=== PATIENT | male | born 1980 | race Caucasian/White ===

== ENCOUNTER 2018-11-19 03:58 | Emergency (ER) | payer MEDICAID ==
[~2018-11-19] VITALS: Ht 177.8 cm; Wt 65.0 kg
[~2018-11-19 03:58] MED LIST: OMEP20CA4 PO
[2018-11-19 04:00] VITALS: BP 137/102
[2018-11-19] MEDS ORDERED: PRED20TA PO (04:19)
[2018-11-19] MEDS ORDERED: AMOX500C2 PO (04:19)
[2018-11-19] MEDS ORDERED: acetaminophen 325mg tablet PO ONE (04:20)
[2018-11-19] MEDS ORDERED: dexamethasone 4mg tablet PO ONE (04:20)
[2018-11-19] MEDS ORDERED: amoxicillin 250mg capsule PO ONE (04:20)
== END 2018-11-19 04:31 | disposition home or self-care (01) ==
LOC: ER 03:58
DX: J02.9 Acute pharyngitis, unspecified (principal); R00.0 Tachycardia, unspecified; J45.909 Unspecified asthma, uncomplicated; F15.90 Other stimulant use, unspecified, uncomplicated; Z98.890 Other specified postprocedural states; Z88.1 Allergy status to other antibiotic agents; Z79.2 Long term (current) use of antibiotics; Z79.899 Other long term (current) drug therapy
CPT/HCPCS: 99284

== ENCOUNTER 2019-01-28 13:45 | Emergency (ER) | payer MEDICAID ==
[~2019-01-28] VITALS: Ht 175.3 cm; Wt 81.8 kg
[~2019-01-28 13:45] MED LIST changes: +LIDOcaine 1% W/epiNEPHrine 1:100,000 20ml vial ONE
[2019-01-28 13:53] VITALS: BP 141/94
[2019-01-28] MEDS ORDERED: bacitracin 15gm ointment TP ONE (18:05)
[2019-01-28] MEDS ORDERED: TETanus/Pertussis (Acell)/Diphther VAC/PF (Tdap-Adult) 0.5ml syringe IMVAC ONE (18:05)
[2019-01-28] MEDS ORDERED: CEPH250T PO (19:23)
== END 2019-01-28 19:30 | disposition home or self-care (01) ==
LOC: ER 13:46
DX: S81.812A Laceration without foreign body, left lower leg, initial encounter (principal); F15.90 Other stimulant use, unspecified, uncomplicated; J45.909 Unspecified asthma, uncomplicated; Z88.1 Allergy status to other antibiotic agents; Z88.8 Allergy status to other drugs, medicaments and biological substances; W26.0XXA Contact with knife, initial encounter; Y93.89 Activity, other specified; Y92.89 Other specified places as the place of occurrence of the external cause; Y99.9 Unspecified external cause status
CPT/HCPCS: 12002; 90471; 99283

== ENCOUNTER 2019-03-05 20:01 | Emergency (ER) | payer MEDICAID ==
[~2019-03-05] VITALS: Ht 177.8 cm; Wt 77.0 kg
[~2019-03-05 20:01] MED LIST changes: +CEPH250T PO; -LIDOcaine 1% W/epiNEPHrine 1:100,000 20ml vial ONE
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
--- NOTE | 2019-03-05 20:47 | NUR ---
pt states, hasnt smoked meth in 2 days.
[2019-03-05 21:25] LABS: BASOPHILS # (AUTO) 0.1 X10'3 (0-0.2); BASOPHILS % (AUTO) 0.4 % (0-1); EOSINOPHILS % (AUTO) 0.1 % (0-6); HEMATOCRIT 43.9 % (42.0-52.0); HEMOGLOBIN 14.8 g/dl (14.0-17.9); LYMPHOCYTES # (AUTO) 1.6 X10'3 (1.1-4.8); LYMPHOCYTES % (AUTO) 11.6 % (21-51); MEAN CORPUSCULAR HGB CONC 33.6 g/dL (33.0-36.5); MEAN CORPUSCULAR VOLUME 92.4 FL (78-98); MEAN PLATELET VOLUME 9.2 FL (7.4-10.4); MONOCYTES # (AUTO) 1.1 X10'3 (0-0.9); MONOCYTES % (AUTO) 7.5 % (2-12); NEUTROPHILS # (AUTO) 11.2 X10'3 (1.8-7.7); NEUTROPHILS % (AUTO) 80.4 % (42-75); PLATELET COUNT 239 X10'3 (140-440); RED BLOOD COUNT 4.76 X10'6 (4.70-6.10); RED CELL DISTRIBUTION WIDTH 13.2 % (11.5-14.5)
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
[2019-03-05 21:33] LABS: ALANINE AMINOTRANSFERASE 97 U/L (12-78); ALBUMIN 4.2 G/DL (3.4-5.0); ALBUMIN/GLOBULIN RATIO 1.3 (1.1-1.5); ALKALINE PHOSPHATASE 98 IU/L (46-116); ANION GAP 10 (8-16); ASPARTATE AMINO TRANSFERASE 196 U/L (10-37); BILIRUBIN,TOTAL 1.8 MG/DL (0.1-1.0); BLOOD UREA NITROGEN 19 MG/DL (7-18); BUN/CREATININE RATIO 16.7 (5.4-32.0); CALCIUM 8.9 MG/DL (8.5-10.1); CHLORIDE 106 MMOL/L (99-107); CREATININE 1.14 MG/DL (0.60-1.10); ETHANOL < 0.010 GM/DL (0.0-0.010); GLUCOSE 116 MG/DL (70-104); POTASSIUM 4.1 MMOL/L (3.5-5.1); SODIUM 145 MMOL/L (135-145); TOTAL PROTEIN 7.4 G/DL (6.4-8.2); eGFR 72 ML/MIN
[2019-03-05 21:54] LABS: URINE AMPHETAMINE SCREEN POSITIVE (Neg); URINE BARBITUATE SCREEN NEGATIVE (Neg); URINE BENZODIAZEPINES SCREEN NEGATIVE (Neg); URINE CANNABINOID SCREEN NEGATIVE (Neg); URINE COCAINE SCREEN NEGATIVE (Neg); URINE METHADONE SCREEN NEGATIVE (Neg); URINE OPIATE SCREEN NEGATIVE (Neg); URINE PHENCYCLIDINE SCREEN NEGATIVE (Neg)
[2019-03-05 23:49] LABS: CLARITY,URINE CLEAR (Clear); COLOR,URINE YELLOW (Yellow); GLUCOSE, URINE NEGATIVE (Neg); KETONES,URINE 15 mg/dl (Neg); LEUKOCYTE ESTERASE ,URINE NEGATIVE (Neg); NITRITES, URINE NEGATIVE (Neg); OCCULT BLOOD,URINE NEGATIVE (Neg); PROTEIN,URINE NEGATIVE (Neg)
[2019-03-05 23:50] LABS: UA COLLECTION TYPE VOIDED
--- NOTE | 2019-03-06 01:26 | NUR ---
Patient sleeping low fowlers position in bed. In view from nursing station.
--- NOTE | 2019-03-06 03:44 | NUR ---
Patient sleeping low fowlers in bed. In view from nursing station.
[2019-03-06 05:11] VITALS: BP 109/69
--- NOTE | 2019-03-06 06:30 | NUR ---
Resting with eyes closed. Respirations normal.
--- NOTE | 2019-03-06 13:25 | NUR ---
Patient sitting up in bed and eating lunch. No distress observed. Continue to monitor.
--- NOTE | 2019-03-06 14:48 | NUR ---
Patient walked up to nurses station and said "I am a self admit, am I allowed to leave?". RN advised patient that he is on a hold at the moment. RN advised patient that he will be evaluated soon and [facility] will decide, once he is evaluated if he can leave. Patient calm and verbalized understanding. Continue to monitor.
--- NOTE | 2019-03-06 15:50 | NUR ---
pt ok to go to [place], called ABIMAEL carroll 15 minutes
== END 2019-03-06 15:58 | disposition home or self-care (01) ==
LOC: ER 20:02
DX: R45.851 Suicidal ideations (principal); J45.909 Unspecified asthma, uncomplicated; F15.90 Other stimulant use, unspecified, uncomplicated; F10.99 Alcohol use, unspecified with unspecified alcohol-induced disorder; Z59.0 Homelessness; Z88.1 Allergy status to other antibiotic agents; Z88.8 Allergy status to other drugs, medicaments and biological substances; Z79.2 Long term (current) use of antibiotics; Z79.899 Other long term (current) drug therapy; Y90.9 Presence of alcohol in blood, level not specified
CPT/HCPCS: 36415; 80053; 80305; 80320; 81003; 84443; 85025; 99284

== ENCOUNTER 2019-03-22 23:51 | Emergency (ER) | payer MEDICAID ==
[~2019-03-22] VITALS: Ht 175.3 cm; Wt 77.0 kg
[2019-03-23] MEDS ORDERED: diphenhydrAMINE 50 mg/ml inj IM ONE (00:50)
[2019-03-23] MEDS ORDERED: triamcinolone acetonide 40mg/ml inj IM ONE (00:50)
[2019-03-23] MEDS ORDERED: DIPH25CA83 PO (00:52)
== END 2019-03-23 01:12 | disposition home or self-care (01) ==
LOC: ER 23:52
DX: L23.7 Allergic contact dermatitis due to plants, except food (principal); J45.909 Unspecified asthma, uncomplicated; F15.90 Other stimulant use, unspecified, uncomplicated; F19.90 Other psychoactive substance use, unspecified, uncomplicated; Z59.0 Homelessness; Z88.1 Allergy status to other antibiotic agents; Z88.8 Allergy status to other drugs, medicaments and biological substances; Z79.2 Long term (current) use of antibiotics; Z79.899 Other long term (current) drug therapy
CPT/HCPCS: 96372; 99283; J1200; J3301

== ENCOUNTER 2019-04-03 06:55 | Emergency (ER) | payer MEDICAID, OTHER ==
[~2019-04-03] VITALS: Ht 177.8 cm; Wt 75.0 kg
[~2019-04-03 06:55] MED LIST changes: +DIPH25CA83 PO
[2019-04-03 07:02] VITALS: BP 143/96
[2019-04-03] MEDS ORDERED: Permethrin Cream 60gm TP ONE (08:25)
[2019-04-03] MEDS ORDERED: TRIA15CR61 TOP (08:33)
[2019-04-03] MEDS ORDERED: PERM60CR4 TOP (08:33)
== END 2019-04-03 09:30 | disposition home or self-care (01) ==
LOC: ER 06:55
DX: L53.8 Other specified erythematous conditions (principal); B86 Scabies; J45.909 Unspecified asthma, uncomplicated; F15.90 Other stimulant use, unspecified, uncomplicated; Z59.0 Homelessness; Z88.1 Allergy status to other antibiotic agents; Z88.8 Allergy status to other drugs, medicaments and biological substances
CPT/HCPCS: 99283

== ENCOUNTER 2019-04-11 16:54 | Emergency (ER) | payer MEDICAID, OTHER ==
[~2019-04-11] VITALS: Ht 175.3 cm; Wt 69.9 kg
[~2019-04-11 16:54] MED LIST changes: +PERM60CR4 TOP; +TRIA15CR61 TOP
[2019-04-11 17:29] LABS: BASOPHILS # (AUTO) 0.1 X10'3 (0-0.2); BASOPHILS % (AUTO) 0.7 % (0-1); EOSINOPHILS % (AUTO) 0.2 % (0-6); HEMATOCRIT 44.9 % (42.0-52.0); LYMPHOCYTES # (AUTO) 1.1 X10'3 (1.1-4.8); LYMPHOCYTES % (AUTO) 8.2 % (21-51); MEAN CORPUSCULAR HEMOGLOBIN 31.3 PG (27.0-31.0); MEAN CORPUSCULAR HGB CONC 33.5 g/dL (33.0-36.5); MEAN CORPUSCULAR VOLUME 93.5 FL (78-98); MEAN PLATELET VOLUME 7.5 FL (7.4-10.4); MONOCYTES % (AUTO) 7.3 % (2-12); NEUTROPHILS # (AUTO) 11.5 X10'3 (1.8-7.7); NEUTROPHILS % (AUTO) 83.6 % (42-75); PLATELET COUNT 353 X10'3 (140-440); RED CELL DISTRIBUTION WIDTH 14.1 % (11.5-14.5); WHITE BLOOD COUNT 13.7 X10'3 (4.5-11.0)
[2019-04-11 17:46] LABS: ALANINE AMINOTRANSFERASE 96 U/L (12-78); ALBUMIN 4.4 G/DL (3.4-5.0); ALBUMIN/GLOBULIN RATIO 1.2 (1.1-1.5); ALKALINE PHOSPHATASE 87 IU/L (46-116); ANION GAP 8 (8-16); ASPARTATE AMINO TRANSFERASE 69 U/L (10-37); BILIRUBIN,TOTAL 0.8 MG/DL (0.1-1.0); BLOOD UREA NITROGEN 22 MG/DL (7-18); BUN/CREATININE RATIO 26.5 (5.4-32.0); CALCIUM 10.1 MG/DL (8.5-10.1); CHLORIDE 104 MMOL/L (99-107); CREATININE 0.83 MG/DL (0.60-1.10); GLUCOSE 115 MG/DL (70-104); POTASSIUM 4.2 MMOL/L (3.5-5.1); SODIUM 142 MMOL/L (135-145); TOTAL CARBON DIOXIDE 30.3 MMOL/L (24-32); TOTAL PROTEIN 8.1 G/DL (6.4-8.2); eGFR > 90 ML/MIN
[2019-04-11] MEDS ORDERED: LORazepam 1 MG tablet PO ONE (20:45)
[2019-04-11] MEDS ORDERED: normal saline 1000ml 1,000 ML IV ONE (21:10)
[2019-04-11 21:47] VITALS: BP 152/91
[2019-04-12] MEDS ORDERED: PERM60CR19 TOP (23:41)
[2019-04-12] MEDS ORDERED: HYDR-3686 PO (23:41)
== END 2019-04-11 22:22 | disposition home or self-care (01) ==
LOC: ER 16:55
DX: R07.89 Other chest pain (principal); F41.9 Anxiety disorder, unspecified; J45.909 Unspecified asthma, uncomplicated; F15.90 Other stimulant use, unspecified, uncomplicated; Z59.0 Homelessness; Z88.1 Allergy status to other antibiotic agents; Z88.8 Allergy status to other drugs, medicaments and biological substances
CPT/HCPCS: 36415; 71045; 80053; 84484; 85025; 93005; 99285; J7030

== ENCOUNTER 2019-04-12 21:19 | Emergency (ER) | payer MEDICAID, OTHER ==
[~2019-04-12] VITALS: Ht 175.3 cm; Wt 75.0 kg
[2019-04-12 21:25] VITALS: BP 116/75
[2019-04-12] MEDS ORDERED: hydrOXYzine 25 MG tablet PO ONE (23:30)
[2019-04-12] MEDS ORDERED: PERM60CR19 TOP (23:41)
[2019-04-12] MEDS ORDERED: HYDR-3686 PO (23:41)
--- NOTE | 2019-04-12 23:51 | NUR ---
PT NOT IN ROOM, HE LEFT WITHOUT DC INSTRUCTIONS
== END 2019-04-12 23:54 | disposition home or self-care (01) ==
LOC: ER 21:19
DX: R07.89 Other chest pain (principal); R21 Rash and other nonspecific skin eruption; J45.909 Unspecified asthma, uncomplicated; F15.90 Other stimulant use, unspecified, uncomplicated; Z59.0 Homelessness; Z88.1 Allergy status to other antibiotic agents; Z88.8 Allergy status to other drugs, medicaments and biological substances
CPT/HCPCS: 99283

== ENCOUNTER 2019-04-14 00:06 | Emergency (ER) | payer MEDICAID, OTHER ==
[~2019-04-14] VITALS: Ht 167.6 cm; Wt 77.3 kg
[~2019-04-14 00:06] MED LIST changes: +HYDR-3686 PO; +PERM60CR19 TOP
[2019-04-14] MEDS ORDERED: HYDR-3686 PO (00:29)
[2019-04-14] MEDS ORDERED: normal saline 1000ML IV soln IVB ONE (00:35)
[2019-04-14] MEDS ORDERED: naproxen 500mg tablet PO ONE (00:35)
[2019-04-14 00:51] VITALS: BP 126/75
== END 2019-04-14 00:52 | disposition home or self-care (01) ==
LOC: ER 00:07
DX: R07.89 Other chest pain (principal); J45.909 Unspecified asthma, uncomplicated; F15.90 Other stimulant use, unspecified, uncomplicated; Z59.0 Homelessness; Z88.1 Allergy status to other antibiotic agents; Z88.8 Allergy status to other drugs, medicaments and biological substances
CPT/HCPCS: 93005; 99283; J7030

== ENCOUNTER 2019-04-18 18:47 | Emergency (ER) | payer MEDICAID, OTHER ==
[~2019-04-18] VITALS: Ht 177.8 cm; Wt 75.0 kg
[2019-04-18 18:59] VITALS: BP 142/89
[2019-04-18] MEDS ORDERED: TRIA15CR61 TOP (19:48)
[2019-04-18] MEDS ORDERED: PERM60CR19 TOP (19:48)
[2019-04-18] MEDS ORDERED: CETI10CA PO (19:50)
[2019-04-18] MEDS ORDERED: diphenhydrAMINE 25mg capsule PO ONE (20:35)
== END 2019-04-18 20:38 | disposition home or self-care (01) ==
LOC: ER 18:47
DX: B86 Scabies (principal); B88.8 Other specified infestations; J45.909 Unspecified asthma, uncomplicated; F15.90 Other stimulant use, unspecified, uncomplicated; Z59.0 Homelessness; Z88.1 Allergy status to other antibiotic agents; Z88.8 Allergy status to other drugs, medicaments and biological substances; Z79.2 Long term (current) use of antibiotics; Z79.899 Other long term (current) drug therapy; Z72.89 Other problems related to lifestyle
CPT/HCPCS: 99283; Q0163

== ENCOUNTER 2019-05-27 22:55 | Emergency (ER) | payer MEDICAID, OTHER ==
[~2019-05-27] VITALS: Ht 175.3 cm; Wt 70.5 kg
[~2019-05-27 22:55] MED LIST changes: +CETI10CA PO; -TRIA15CR61 TOP
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
[2019-05-27 23:40] LABS: BASOPHILS # (AUTO) 0.3 X10'3 (0-0.2); EOSINOPHILS % (AUTO) 0.4 % (0-6); HEMOGLOBIN 10.4 g/dl (14.0-17.9); LYMPHOCYTES # (AUTO) 0.8 X10'3 (1.1-4.8); LYMPHOCYTES % (AUTO) 6.2 % (21-51); MEAN CORPUSCULAR HEMOGLOBIN 29.9 PG (27.0-31.0); MEAN CORPUSCULAR HGB CONC 32.6 g/dL (33.0-36.5); MEAN CORPUSCULAR VOLUME 91.8 FL (78-98); MEAN PLATELET VOLUME 8.7 FL (7.4-10.4); MONOCYTES % (AUTO) 8.4 % (2-12); NEUTROPHILS # (AUTO) 10.3 X10'3 (1.8-7.7); PLATELET COUNT 408 X10'3 (140-440); RED BLOOD COUNT 3.48 X10'6 (4.70-6.10); RED CELL DISTRIBUTION WIDTH 15.2 % (11.5-14.5); WHITE BLOOD COUNT 12.5 X10'3 (4.5-11.0)
[2019-05-27 23:42] LABS: CLARITY,URINE CLEAR (Clear); COLOR,URINE YELLOW (Yellow); GLUCOSE, URINE NEGATIVE (Neg); KETONES,URINE 40 mg/dl (Neg); LEUKOCYTE ESTERASE ,URINE NEGATIVE (Neg); NITRITES, URINE NEGATIVE (Neg); OCCULT BLOOD,URINE NEGATIVE (Neg); PH,URINE 5.5 (4.8-8.0); PROTEIN,URINE NEGATIVE (Neg); UROBILINOGEN,URINE 0.2 E.U/dL (0.2-1.0)
[2019-05-27 23:46] LABS: UA COLLECTION TYPE VOIDED
[2019-05-27 23:57] LABS: URINE AMPHETAMINE SCREEN POSITIVE (Neg); URINE BARBITUATE SCREEN NEGATIVE (Neg); URINE BENZODIAZEPINES SCREEN NEGATIVE (Neg); URINE CANNABINOID SCREEN NEGATIVE (Neg); URINE COCAINE SCREEN NEGATIVE (Neg); URINE METHADONE SCREEN NEGATIVE (Neg); URINE OPIATE SCREEN POSITIVE (Neg); URINE PHENCYCLIDINE SCREEN NEGATIVE (Neg)
[2019-05-27 23:58] LABS: ALANINE AMINOTRANSFERASE 57 U/L (12-78); ALBUMIN 3.6 G/DL (3.4-5.0); ALBUMIN/GLOBULIN RATIO 0.9 (1.1-1.5); ALKALINE PHOSPHATASE 96 IU/L (46-116); ANION GAP 11 (8-16); ASPARTATE AMINO TRANSFERASE 61 U/L (10-37); BLOOD UREA NITROGEN 34 MG/DL (7-18); BUN/CREATININE RATIO 30.1 (5.4-32.0); CHLORIDE 102 MMOL/L (99-107); CREATININE 1.13 MG/DL (0.60-1.10); ETHANOL < 0.010 GM/DL (0.0-0.010); GLUCOSE 114 MG/DL (70-104); POTASSIUM 3.7 MMOL/L (3.5-5.1); SODIUM 138 MMOL/L (135-145); TOTAL CARBON DIOXIDE 25.5 MMOL/L (24-32); TOTAL PROTEIN 7.6 G/DL (6.4-8.2); eGFR 73 ML/MIN
[2019-05-28] LABS: ACETAMINOPHEN < 2.0 UG/ML (10-30)
[2019-05-28] MEDS: amox tr/potassium clavulanate 875/125mg TAB PO SCH ×2 (00:51→07:59)
--- NOTE | 2019-05-28 01:00 | NUR ---
Pt. lying in bed sleeping at this time, rr even and unlabored. Pt. has a large scab present on right lower calf, skin at area feels warm and is slightly reddened and edematous. Pt. reports that he got bit by a dog here one-month ago. Dr. Swenson assessed area and new order for Augmentin ABT, pt. compliant with taking medication. Area cleaned and picture obtained and placed in pt's chart. New order for wound care consult obtained.
--- NOTE | 2019-05-28 01:00 | NUR ---
Note undone in EDM - 05/28/19 at 0315 by JAVIER Pt. laying in bed sleeping at this time, rr even and unlabored. Pt. has a large scab present on left lower calf, skin at area feels warm and is slightly reddened. Pt. reports that he got bit by a dog here one-month ago. Dr. Swenson assessed area and new order for Augmentin ABT, pt. compliant with taking medication.
[2019-05-28] MEDS ORDERED: NO HOME MEDS (02:55)
--- NOTE | 2019-05-28 03:00 | NUR ---
Pt. continues to sleep at this time, laying on his back, rr even and unlabored.
--- NOTE | 2019-05-28 05:00 | NUR ---
Pt. continues to sleep, laying on his left side at this time, makes occasional body adjustments.
--- NOTE | 2019-05-28 05:20 | NUR ---
Awoke pt. to obtain V/S, pt. reports pain at left shoulder site, however he immediately returns back to sleep. No other s/s of pain exhibited and V/S WNL. Will endorse to AM shift and continue to monitor.
--- NOTE | 2019-05-28 06:04 | NUR ---
Pt. continues to sleep, appears to be resting comfortably, rr remain even and unlabored.
--- NOTE | 2019-05-28 06:33 | NUR ---
Received patient resting in bed peacefully on his left side. No distress observed.
--- NOTE | 2019-05-28 08:04 | NUR ---
Patient is up in bed eating breakfast. Denies SI/HI, A/VH. He states that he just gets "depressed sometimes". Took his oral medication for dog bite on his leg without incident. He is pleasant and cooperative with care. Right leg with wound on lateral side of calf. It is red and warm to the touch, no open spots or oozing noted. Patient states that he has had a tetanus shot in the last 5 years.
--- NOTE | 2019-05-28 08:13 | NUR ---
Compa from [facility] is at bedside evaluating patient. Pt is overheard stating that he has been under stress lately and has tried to kill himself a few times. Stress is that he is homeless.
--- NOTE | 2019-05-28 08:21 | NUR ---
Patient is seen ambulating to the bathroom. He gait is antalgic and he reports that his right leg is "sore".
--- NOTE | 2019-05-28 08:55 | NUR ---
Compa from [facility] states he will not be keeping patient on a hold.
[2019-05-28] MEDS ORDERED: AMOX-422 PO (09:18)
--- NOTE | 2019-05-28 09:20 | NUR ---
Patient is being assessed by Dr. Dutta regarding leg wound. Patient was given the number for [facility] and encouraged to follow up with the [facility].
--- NOTE | 2019-05-28 09:33 | NUR ---
Patient was discharged from the facility ambulating self. No distress observed. All personal items inventoried and in patient's possession at time of discharge. All discharge paperwork discussed with patient, questions were answered and patient verbalized understanding. Patient currently denies SI and states that he will follow up with [facility] for depression on Thursday per Compa from [facility] recommendation. Patient is a non-smoker. Information on Suicide prevention and resources given to patient. Resources on NA/AA and abstaining from illicit substances were given to patient as well. Currently denies HI, A/VH. Prescription for Augmentin given to patient with education and instructions. Cab called for patient.
[2019-05-28 09:34] VITALS: BP 123/83
== END 2019-05-28 09:38 | disposition home or self-care (01) ==
LOC: ER 22:56
DX: R45.851 Suicidal ideations (principal); L03.115 Cellulitis of right lower limb; F15.10 Other stimulant abuse, uncomplicated; J45.909 Unspecified asthma, uncomplicated; Z59.0 Homelessness; Z72.89 Other problems related to lifestyle; Z88.1 Allergy status to other antibiotic agents; Z91.030 Bee allergy status; Z79.899 Other long term (current) drug therapy
CPT/HCPCS: 80053; 80305; 80320; 80329; 81003; 85025; 99285

== ENCOUNTER 2019-08-06 12:06 | Inpatient (IN) | payer MEDICAID ==
[~2019-08-06] VITALS: Ht 177.8 cm; Wt 72.7 kg
[~2019-08-06 12:06] MED LIST changes: -CEPH250T PO; +CEPH500C5 PO; -CETI10CA PO; -DIPH25CA83 PO; +FLUO-167 PO; -HYDR-3686 PO; +HYDR-4383 PO; +MULT-1179 PO; +NICO-668 BC; +NO HOME MEDS; -OMEP20CA4 PO; -PERM60CR19 TOP; -PERM60CR4 TOP; +TRAZ-251 PO; +diatrozoate meglu/diatrozoate sod (37% iodine) 120ML oral solution ONE; +thiamine tablet PO
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
[2019-08-06] MEDS ORDERED: ondansetron/PF 4mg/2ml inj IV ONE (12:50)
[2019-08-06] MEDS ORDERED: morphine 4 MG/ML inj SYRINge IV ONE (12:50)
[2019-08-06] MEDS ORDERED: normal saline 1000ML IV soln IVB ONE (12:50)
[2019-08-06] MEDS ORDERED: iohexol 300mg/ml 100ml inj. ONE (12:55)
[2019-08-06] MEDS ORDERED: iohexol 300 MG/1 ML 50ml polymer ONE (13:00)
--- NOTE | 2019-08-06 13:11 | NUR ---
pt out to ct via wheelchair with entertainment production professional
[2019-08-06 13:24] LABS: BASOPHILS # (AUTO) 0.1 X10'3 (0-0.2); BASOPHILS % (AUTO) 0.7 % (0-1); EOSINOPHILS # (AUTO) 0.1 X10'3 (0-0.9); EOSINOPHILS % (AUTO) 0.7 % (0-6); HEMATOCRIT 36.8 % (42.0-52.0); HEMOGLOBIN 11.9 g/dl (14.0-17.9); LYMPHOCYTES # (AUTO) 0.8 X10'3 (1.1-4.8); LYMPHOCYTES % (AUTO) 6.8 % (21-51); MEAN CORPUSCULAR HEMOGLOBIN 27.4 PG (27.0-31.0); MEAN CORPUSCULAR HGB CONC 32.4 g/dL (33.0-36.5); MEAN CORPUSCULAR VOLUME 84.5 FL (78-98); MEAN PLATELET VOLUME 8.1 FL (7.4-10.4); MONOCYTES # (AUTO) 1.1 X10'3 (0-0.9); MONOCYTES % (AUTO) 9.3 % (2-12); NEUTROPHILS # (AUTO) 10.1 X10'3 (1.8-7.7); NEUTROPHILS % (AUTO) 82.5 % (42-75); PLATELET COUNT 304 X10'3 (140-440); RED BLOOD COUNT 4.36 X10'6 (4.70-6.10); RED CELL DISTRIBUTION WIDTH 16.2 % (11.5-14.5); WHITE BLOOD COUNT 12.2 X10'3 (4.5-11.0)
--- NOTE | 2019-08-06 13:30 | NUR ---
pt returns from ct. [employer] at the bedside
[2019-08-06 13:39] LABS: PARTIAL THROMBOPLASTIN TIME 26 SECONDS (22-32)
[2019-08-06 13:41] LABS: ALANINE AMINOTRANSFERASE 22 U/L (12-78); ALBUMIN 3.3 G/DL (3.4-5.0); ALBUMIN/GLOBULIN RATIO 0.8 (1.1-1.5); ALKALINE PHOSPHATASE 93 IU/L (46-116); ANION GAP 10 (8-16); ASPARTATE AMINO TRANSFERASE 27 U/L (10-37); BILIRUBIN,TOTAL 1.3 MG/DL (0.1-1.0); BLOOD UREA NITROGEN 11 MG/DL (7-18); BUN/CREATININE RATIO 10.8 (5.4-32.0); CALCIUM 9.3 MG/DL (8.5-10.1); CHLORIDE 100 MMOL/L (99-107); CREATININE 1.02 MG/DL (0.60-1.10); ETHANOL < 0.010 GM/DL (0.0-0.010); GLUCOSE 117 MG/DL (70-104); POTASSIUM 3.7 MMOL/L (3.5-5.1); SODIUM 138 MMOL/L (135-145); TOTAL CARBON DIOXIDE 28.2 MMOL/L (24-32); TOTAL PROTEIN 7.3 G/DL (6.4-8.2); eGFR 82 ML/MIN
[2019-08-06] MEDS ORDERED: vancomycin/NS 1 GM ADD-VANTAGE 250 ML IV ONE (14:15)
[2019-08-06] MEDS ORDERED: piperacillin/tazo 3.375gm/50ml 50 ML IV ONE (14:15)
[2019-08-06] MEDS ORDERED: ondansetron/PF 4mg/2ml inj IV PRN (15:30)
[2019-08-06] MEDS ORDERED: potassium CL 10mEq/100ml bag 100 ML IV PRN ×2 (15:30)
[2019-08-06] MEDS ORDERED: magnesium Cl slow-release 64mg tablet PO PRN (15:30)
[2019-08-06] MEDS ORDERED: potassium Cl 20 mEq SR tablet PO PRN ×2 (15:30)
[2019-08-06] MEDS ORDERED: acetaminophen 325mg tablet PO PRN (15:30)
[2019-08-06] MEDS ORDERED: magnesium 4gm in 100ml NS 100 ML IV PRN (15:30)
[2019-08-06] MEDS ORDERED: magnesium 2GM in 50ml NS 50 ML IV PRN (15:30)
[2019-08-06] MEDS: morphine 2 MG/ML inj. syringe IV PRN ×2 (16:06→20:33)
[2019-08-06 16:59] LABS: CLARITY,URINE CLEAR (Clear); COLOR,URINE YELLOW (Yellow); GLUCOSE, URINE NEGATIVE (Neg); KETONES,URINE NEGATIVE (Neg); LEUKOCYTE ESTERASE ,URINE NEGATIVE (Neg); NITRITES, URINE NEGATIVE (Neg); OCCULT BLOOD,URINE NEGATIVE (Neg); PROTEIN,URINE NEGATIVE (Neg)
[2019-08-06 17:01] LABS: UA COLLECTION TYPE URINAL
[2019-08-06 17:13] LABS: URINE AMPHETAMINE SCREEN NEGATIVE (Neg); URINE BARBITUATE SCREEN NEGATIVE (Neg); URINE BENZODIAZEPINES SCREEN NEGATIVE (Neg); URINE CANNABINOID SCREEN NEGATIVE (Neg); URINE COCAINE SCREEN NEGATIVE (Neg); URINE METHADONE SCREEN NEGATIVE (Neg); URINE OPIATE SCREEN POSITIVE (Neg); URINE PHENCYCLIDINE SCREEN NEGATIVE (Neg)
[2019-08-06] MEDS: normal saline 1000ml 1,000 ML IV SCH (18:00)
[2019-08-06] MEDS: K and/or MAG REPLACEMENT MC SCH (20:00)
[2019-08-07] VITALS: BP 110/69
[2019-08-07] MEDS: morphine 2 MG/ML inj. syringe IV PRN ×2 (02:54→07:52)
[2019-08-07] MEDS ORDERED: VANCOMYCIN IV ONE ×2 (03:00)
[2019-08-07] MEDS ORDERED: SODIUM CHLORIDE IV ONE ×2 (03:00)
[2019-08-07] MEDS: piperacillin/tazo 3.375gm/50ml 50 ML IV SCH ×4 (04:23→20:51)
[2019-08-07] MEDS: vancomycin/NS 1 GM ADD-VANTAGE 250 ML IV SCH ×3 (05:17→19:13)
[2019-08-07 05:19] LABS: ALBUMIN 2.6 G/DL (3.4-5.0); ANION GAP 4 (8-16); BLOOD UREA NITROGEN 7 MG/DL (7-18); BUN/CREATININE RATIO 8.3 (5.4-32.0); CALCIUM 8.1 MG/DL (8.5-10.1); CHLORIDE 106 MMOL/L (99-107); CREATININE 0.84 MG/DL (0.60-1.10); GLUCOSE 99 MG/DL (70-104); MAGNESIUM 1.9 MG/DL (1.5-2.4); POTASSIUM 3.7 MMOL/L (3.5-5.1); SODIUM 138 MMOL/L (135-145); TOTAL CARBON DIOXIDE 27.6 MMOL/L (24-32); eGFR > 90 ML/MIN
[2019-08-07 05:22] LABS: BASOPHILS # (AUTO) 0.1 X10'3 (0-0.2); BASOPHILS % (AUTO) 0.4 % (0-1); EOSINOPHILS # (AUTO) 0.1 X10'3 (0-0.9); EOSINOPHILS % (AUTO) 0.7 % (0-6); HEMATOCRIT 32.6 % (42.0-52.0); HEMOGLOBIN 10.5 g/dl (14.0-17.9); LYMPHOCYTES % (AUTO) 8.7 % (21-51); MEAN CORPUSCULAR HEMOGLOBIN 27.1 PG (27.0-31.0); MEAN CORPUSCULAR HGB CONC 32.1 g/dL (33.0-36.5); MEAN CORPUSCULAR VOLUME 84.3 FL (78-98); MEAN PLATELET VOLUME 8.2 FL (7.4-10.4); MONOCYTES # (AUTO) 1.2 X10'3 (0-0.9); MONOCYTES % (AUTO) 10.2 % (2-12); NEUTROPHILS # (AUTO) 9.4 X10'3 (1.8-7.7); PLATELET COUNT 272 X10'3 (140-440); RED BLOOD COUNT 3.87 X10'6 (4.70-6.10); RED CELL DISTRIBUTION WIDTH 16.2 % (11.5-14.5); WHITE BLOOD COUNT 11.8 X10'3 (4.5-11.0)
--- NOTE | 2019-08-07 07:10 | NUR ---
Patient in room [facility]. I have received report from Sulaiman BOSS and had the opportunity to ask questions and assume patient care.
[2019-08-07 07:47] VITALS: BP 111/71
[2019-08-07] MEDS: K and/or MAG REPLACEMENT MC SCH ×2 (08:00→20:00)
[2019-08-07 11:00] VITALS: BP 112/71
[2019-08-07] MEDS: morphine 4 MG/ML inj SYRINge IV PRN ×3 (13:16→21:53)
--- NOTE | 2019-08-07 17:29 | NUR ---
Pt noted to have bilateral neck puncture sites unsure if self-inflicted previous admit in [facility] eating 100% in May. Pending PO meals; will monitor for ONS needs. Addendum: 08/07/19 at [address] Amended: Links added.
--- NOTE | 2019-08-07 18:48 | NUR ---
Problems reprioritized. Patient report given, questions answered & plan of care reviewed with Pat RN.
[2019-08-07 20:00] VITALS: BP 110/71
[2019-08-07] MEDS: lactobacillus rhamnosus 10,000 MMU CELLS/CAPSULE PO SCH (20:51)
[2019-08-08 00:11] VITALS: BP 101/65
[2019-08-08] MEDS ORDERED: VANCOMYCIN LEVEL IV ONE (02:30)
[2019-08-08] MEDS: morphine 4 MG/ML inj SYRINge IV PRN ×4 (02:48→19:48)
[2019-08-08 03:02] LABS: BASOPHILS # (AUTO) 0.1 X10'3 (0-0.2); BASOPHILS % (AUTO) 0.6 % (0-1); EOSINOPHILS # (AUTO) 0.1 X10'3 (0-0.9); EOSINOPHILS % (AUTO) 1.1 % (0-6); HEMATOCRIT 31.7 % (42.0-52.0); HEMOGLOBIN 10.1 g/dl (14.0-17.9); LYMPHOCYTES # (AUTO) 1.3 X10'3 (1.1-4.8); LYMPHOCYTES % (AUTO) 12.4 % (21-51); MEAN CORPUSCULAR HGB CONC 31.9 g/dL (33.0-36.5); MEAN CORPUSCULAR VOLUME 84.5 FL (78-98); MEAN PLATELET VOLUME 7.7 FL (7.4-10.4); MONOCYTES # (AUTO) 1.3 X10'3 (0-0.9); MONOCYTES % (AUTO) 11.7 % (2-12); NEUTROPHILS % (AUTO) 74.2 % (42-75); PLATELET COUNT 279 X10'3 (140-440); RED BLOOD COUNT 3.75 X10'6 (4.70-6.10); WHITE BLOOD COUNT 10.7 X10'3 (4.5-11.0)
[2019-08-08 03:10] LABS: % IRON SATURATION 3 % (11-46); IRON 7 UG/DL (53-167); TOTAL IRON BINDING CAPACITY 225 UG/DL (259-388)
[2019-08-08 03:14] LABS: ALBUMIN 2.4 G/DL (3.4-5.0); ANION GAP 9 (8-16); BLOOD UREA NITROGEN 5 MG/DL (7-18); BUN/CREATININE RATIO 5.7 (5.4-32.0); CALCIUM 8.2 MG/DL (8.5-10.1); CHLORIDE 106 MMOL/L (99-107); CREATININE 0.87 MG/DL (0.60-1.10); GLUCOSE 93 MG/DL (70-104); MAGNESIUM 2.1 MG/DL (1.5-2.4); POTASSIUM 3.6 MMOL/L (3.5-5.1); SODIUM 142 MMOL/L (135-145); TOTAL CARBON DIOXIDE 27.4 MMOL/L (24-32); VANCOMYCIN,TROUGH 12.5 UG/ML (6.0-14.0); eGFR > 90 ML/MIN
[2019-08-08] MEDS: vancomycin/NS 1 GM ADD-VANTAGE 250 ML IV SCH (03:14)
[2019-08-08] MEDS: piperacillin/tazo 3.375gm/50ml 50 ML IV SCH ×4 (03:14→21:39)
--- NOTE | 2019-08-08 06:47 | NUR ---
Patient in room [facility] 346A. I have received report from KARYN ROPER and had the opportunity to ask questions and assume patient care.
[2019-08-08] MEDS: K and/or MAG REPLACEMENT MC SCH ×2 (07:01→20:00)
[2019-08-08 07:17] VITALS: BP 98/54
[2019-08-08] MEDS: lactobacillus rhamnosus 10,000 MMU CELLS/CAPSULE PO SCH ×2 (08:21→19:47)
[2019-08-08] MEDS: VANCOmycin 1250MG/NS 250ml Bag 250 ML IV SCH ×2 (11:21→19:47)
--- NOTE | 2019-08-08 14:00 | NUR ---
WOUND INFECTION EDUCATION PROVIDED BY WOUND [facility] 1. Patient instructed to call their primary doctor, or go the ED immediately if any of the following symptoms occur: * Increased pain in wound * Increase in drainage from the wound * Redness in the skin surrounding the wound * Warmth in the skin surrounding the wound * Bleeding from the wound * Temperature of 101 or greater 2. If any of these occur while in the hospital tell a nurse immediately. Addendum: 08/08/19 at 1400 by Tess Toney RN Amended: Links added.
[2019-08-08] MEDS: normal saline 1000ml 1,000 ML IV SCH (15:28)
--- NOTE | 2019-08-08 18:14 | NUR ---
Problems reprioritized. Patient report given, questions answered & plan of care reviewed with KARYN RAMIREZ.
--- NOTE | 2019-08-08 18:15 | NUR ---
Patient in room [facility] 346. I have received report from KARYN Atkins and had the opportunity to ask questions and assume patient care.
[2019-08-08 19:57] VITALS: BP 114/70
[2019-08-09] VITALS: BP 112/72
[2019-08-09] MEDS: piperacillin/tazo 3.375gm/50ml 50 ML IV SCH ×2 (03:05→07:57)
[2019-08-09] MEDS: VANCOmycin 1250MG/NS 250ml Bag 250 ML IV SCH ×2 (03:05→12:26)
[2019-08-09 05:44] LABS: EOSINOPHILS # (AUTO) 0.1 X10'3 (0-0.9); MEAN PLATELET VOLUME 7.7 FL (7.4-10.4); MONOCYTES # (AUTO) 0.9 X10'3 (0-0.9)
[2019-08-09 05:45] LABS: ALBUMIN 2.5 G/DL (3.4-5.0); ANION GAP 7 (8-16); BLOOD UREA NITROGEN 5 MG/DL (7-18); BUN/CREATININE RATIO 5.8 (5.4-32.0); CALCIUM 8.8 MG/DL (8.5-10.1); CHLORIDE 106 MMOL/L (99-107); CREATININE 0.86 MG/DL (0.60-1.10); GLUCOSE 89 MG/DL (70-104); POTASSIUM 3.8 MMOL/L (3.5-5.1); SODIUM 142 MMOL/L (135-145); TOTAL CARBON DIOXIDE 29.4 MMOL/L (24-32); eGFR > 90 ML/MIN
[2019-08-09 05:48] LABS: BASOPHILS % (AUTO) 0.4 % (0-1); EOSINOPHILS % (AUTO) 1.6 % (0-6); HEMATOCRIT 33.2 % (42.0-52.0); HEMOGLOBIN 10.8 g/dl (14.0-17.9); LYMPHOCYTES # (AUTO) 1.2 X10'3 (1.1-4.8); LYMPHOCYTES % (AUTO) 13.3 % (21-51); MEAN CORPUSCULAR HEMOGLOBIN 27.7 PG (27.0-31.0); MEAN CORPUSCULAR HGB CONC 32.6 g/dL (33.0-36.5); MEAN CORPUSCULAR VOLUME 85.1 FL (78-98); MONOCYTES % (AUTO) 10.6 % (2-12); NEUTROPHILS # (AUTO) 6.6 X10'3 (1.8-7.7); NEUTROPHILS % (AUTO) 74.1 % (42-75); PLATELET COUNT 338 X10'3 (140-440); RED CELL DISTRIBUTION WIDTH 16.1 % (11.5-14.5); WHITE BLOOD COUNT 8.9 X10'3 (4.5-11.0)
--- NOTE | 2019-08-09 06:14 | NUR ---
Problems reprioritized. Patient report given, questions answered & plan of care reviewed with KARYN Marrufo.
--- NOTE | 2019-08-09 06:30 | NUR ---
Patient in room [facility] 346. I have received report from Farshad Ragsdale RN and had the opportunity to ask questions and assume patient care.
[2019-08-09] MEDS: normal saline 1000ml 1,000 ML IV SCH (07:59)
[2019-08-09] MEDS: K and/or MAG REPLACEMENT MC SCH (08:00)
[2019-08-09] MEDS: lactobacillus rhamnosus 10,000 MMU CELLS/CAPSULE PO SCH (08:16)
[2019-08-09 08:51] VITALS: BP 95/58
[2019-08-09] MEDS ORDERED: MUPI22OI30 TOP (09:30)
[2019-08-09] MEDS ORDERED: VANCOMYCIN LEVEL IV ONE (10:30)
--- NOTE | 2019-08-09 11:27 | NUR ---
Pt D/C'd per Dr Suarez at 0930. Pt will be leaving the hospital at 1300 due to transport arrangement. Reenter orders for [facility] through. pt would like to have last dose of Vancomycin before leaving.
[2019-08-09 11:59] VITALS: BP 95/58
[2019-08-09 12:32] VITALS: BP 114/78
--- NOTE | 2019-08-09 13:26 | NUR ---
Patient D/C'd. Medication and discharge instructions given to patient. Pt received a shower and all dressing were changed. IV removed x2 with cannula intact. Pt was escorted walking to [facility], left the hospital via [facility].
[2019-08-09] MEDS ORDERED: mupirocin 2% ointment 22GM TP SCH (20:00)
== END 2019-08-09 13:02 | disposition home or self-care (01) | DRG 143 ==
LOC: ER 12:07 → ED HOLD 15:28 → SUR 3N 20:05
PROVIDERS: ADMIT Internal Medicine; ATTEND Internal Medicine
PROC: BW211ZZ Computerized Tomography (CT Scan) of Abdomen and Pelvis using Low Osmolar Contrast (ICD-10-PCS; principal; 2019-08-06)
PROC: BD11YZZ Fluoroscopy of Esophagus using Other Contrast (ICD-10-PCS; 2019-08-06)
DX: T79.7XXA Traumatic subcutaneous emphysema, initial encounter (principal); L03.221 Cellulitis of neck; F17.210 Nicotine dependence, cigarettes, uncomplicated; J45.909 Unspecified asthma, uncomplicated; L03.311 Cellulitis of abdominal wall; S11.81XA Laceration without foreign body of other specified part of neck, initial encounter; S31.119A Laceration without foreign body of abdominal wall, unspecified quadrant without penetration into peritoneal cavity, initial encounter; F15.90 Other stimulant use, unspecified, uncomplicated; Z59.0 Homelessness; W26.8XXA Contact with other sharp object(s), not elsewhere classified, initial encounter; Y93.89 Activity, other specified; Y92.89 Other specified places as the place of occurrence of the external cause; Y99.8 Other external cause status
CPT/HCPCS: 36415; 70491; 71045; 74177; 74220; 80048; 80053; 80202; 80305; 80320; 81003; 83540; 83550; 83735; 85025; 85610; 85730; 87070; 87077; 87081; 87186; 99285; G0378; J2270; J2405; J2543; J3370; J7030; J7040; Q9963; Q9967

== ENCOUNTER 2020-09-05 13:09 | Emergency (ER) | payer MEDICAID ==
[~2020-09-05] VITALS: Ht 175.3 cm; Wt 72.7 kg
[~2020-09-05 13:09] MED LIST changes: -CEPH500C5 PO; -FLUO-167 PO; -HYDR-4383 PO; -MULT-1179 PO; -NICO-668 BC; -TRAZ-251 PO; -diatrozoate meglu/diatrozoate sod (37% iodine) 120ML oral solution ONE; -thiamine tablet PO
[2020-09-05 13:21] VITALS: BP 108/75
== END 2020-09-05 16:41 | disposition left against medical advice (07) ==
LOC: ER 13:09
DX: L55.9 Sunburn, unspecified (principal); Z53.21 Procedure and treatment not carried out due to patient leaving prior to being seen by health care provider

== ENCOUNTER 2020-09-12 04:04 | Emergency (ER) | payer MEDICAID ==
[~2020-09-12] VITALS: Ht 175.3 cm; Wt 68.2 kg
--- NOTE | 2020-09-12 06:21 | NUR ---
Patient brought from main ER to bed 25. Placed in green scrubs.
[2020-09-12 06:30] LABS: ALANINE AMINOTRANSFERASE 29 U/L (12-78); ALBUMIN 3.4 G/DL (3.4-5.0); ALBUMIN/GLOBULIN RATIO 0.9 (1.1-1.5); ALKALINE PHOSPHATASE 80 IU/L (46-116); ANION GAP 11 (8-16); ASPARTATE AMINO TRANSFERASE 23 U/L (10-37); BILIRUBIN,TOTAL 0.9 MG/DL (0.1-1.0); BLOOD UREA NITROGEN 16 MG/DL (7-18); BUN/CREATININE RATIO 17.8 (5.4-32.0); CALCIUM 8.5 MG/DL (8.5-10.1); CHLORIDE 105 MMOL/L (99-107); GLUCOSE 106 MG/DL (70-104); POTASSIUM 3.3 MMOL/L (3.5-5.1); SODIUM 143 MMOL/L (135-145); TOTAL CARBON DIOXIDE 26.8 MMOL/L (24-32); TOTAL PROTEIN 7.1 G/DL (6.4-8.2); eGFR > 90 ML/MIN
[2020-09-12 06:36] LABS: ETHANOL < 0.010 GM/DL (0.0-0.010)
[2020-09-12 06:38] LABS: BASOPHILS % (AUTO) 0.7 % (0-1); EOSINOPHILS # (AUTO) 0.1 X10'3 (0-0.9); EOSINOPHILS % (AUTO) 1.5 % (0-6); HEMATOCRIT 37.9 % (42.0-52.0); HEMOGLOBIN 12.7 g/dl (14.0-17.9); LYMPHOCYTES # (AUTO) 1.2 X10'3 (1.1-4.8); LYMPHOCYTES % (AUTO) 17.2 % (21-51); MEAN CORPUSCULAR HEMOGLOBIN 32.1 PG (27.0-31.0); MEAN CORPUSCULAR HGB CONC 33.4 g/dL (33.0-36.5); MEAN PLATELET VOLUME 9.1 FL (7.4-10.4); MONOCYTES # (AUTO) 0.7 X10'3 (0-0.9); MONOCYTES % (AUTO) 10.2 % (2-12); NEUTROPHILS # (AUTO) 4.8 X10'3 (1.8-7.7); NEUTROPHILS % (AUTO) 70.4 % (42-75); PLATELET COUNT 336 X10'3 (140-440); RED BLOOD COUNT 3.94 X10'6 (4.70-6.10); RED CELL DISTRIBUTION WIDTH 13.3 % (11.5-14.5); WHITE BLOOD COUNT 6.7 X10'3 (4.5-11.0)
[2020-09-12 09:32] LABS: URINE AMPHETAMINE SCREEN NEGATIVE (Neg); URINE BARBITUATE SCREEN NEGATIVE (Neg); URINE BENZODIAZEPINES SCREEN NEGATIVE (Neg); URINE CANNABINOID SCREEN NEGATIVE (Neg); URINE COCAINE SCREEN NEGATIVE (Neg); URINE METHADONE SCREEN NEGATIVE (Neg); URINE OPIATE SCREEN NEGATIVE (Neg); URINE PHENCYCLIDINE SCREEN NEGATIVE (Neg)
--- NOTE | 2020-09-12 13:39 | NUR ---
WHEN OBTAINING PT'S URINE SPECIMEN, I NOTICED THE UA CUP WAS COLD RATHER IT BEING WARM PER USUAL. I DID NOTICE THE LIQUID TO HAVE A SLIGHT YELLOW COLOR TO IT. BUT I MENTIONED MY CONCERNS TO KARYN GREGORIO AND SHE CONFRONTED PT. PT DENIED THE SPECIMEN BEING TOILET WATER.
--- NOTE | 2020-09-12 14:47 | NUR ---
PT CONFESSED TO ME THAT HE DID IN FACT USE OLD TOILET WATER FOR HIS URINE SPECIMEN. I EXPLAINED THE CONFESSION TO KARYN GREGORIO AND ANOTHER URINE WAS OBTAINED. THIS TIME THE CUP WAS WARM TO TOUCH AND THE URINE WAS A MADINA COLOR.
--- NOTE | 2020-09-12 15:00 | NUR ---
Pt being evaluated by [facility] clinician
[2020-09-12 15:03] LABS: URINE AMPHETAMINE SCREEN NEGATIVE (Neg); URINE BARBITUATE SCREEN NEGATIVE (Neg); URINE BENZODIAZEPINES SCREEN NEGATIVE (Neg); URINE CANNABINOID SCREEN NEGATIVE (Neg); URINE COCAINE SCREEN NEGATIVE (Neg); URINE METHADONE SCREEN NEGATIVE (Neg); URINE OPIATE SCREEN NEGATIVE (Neg); URINE PHENCYCLIDINE SCREEN NEGATIVE (Neg)
[2020-09-12 15:28] LABS: CLARITY,URINE CLEAR (Clear); COLOR,URINE YELLOW (Yellow); GLUCOSE, URINE NEGATIVE (Neg); KETONES,URINE NEGATIVE (Neg); LEUKOCYTE ESTERASE ,URINE NEGATIVE (Neg); NITRITES, URINE NEGATIVE (Neg); OCCULT BLOOD,URINE NEGATIVE (Neg); PROTEIN,URINE NEGATIVE (Neg)
[2020-09-12 15:31] LABS: UA COLLECTION TYPE CLN CATCH MIDSTREAM
--- NOTE | 2020-09-12 16:00 | NUR ---
5150 written by [facility] light cleaner Clive.
--- NOTE | 2020-09-12 17:46 | NUR ---
Gave verbal report to [facility] at [facility] for possible placement.
--- NOTE | 2020-09-12 18:55 | NUR ---
PT HAS BEEN ACCEPTED TO [facility] BY JUSTINE KEYS. HE WAS ACCEPTED TONIGHT AT 1800. PT WILL BE PICKED UP TOMORROW (09/13) BETWEEN [phone].
--- NOTE | 2020-09-12 19:44 | NUR ---
The patient is staring straight ahead and not answering any questions.
--- NOTE | 2020-09-12 19:51 | NUR ---
Contacted Gabino FLETCHER from [facility] to discuss patient's admit circumstances and presenting symptoms and medications ordered.
[2020-09-12] MEDS ORDERED: OLANZapine 5mg rapidly disint. tablet PO ONE (19:55)
--- NOTE | 2020-09-12 21:08 | NUR ---
The patient is resting on his bed.
--- NOTE | 2020-09-12 22:36 | NUR ---
The patient is resting on his bed.
--- NOTE | 2020-09-12 23:46 | NUR ---
The patient appears to be sleeping
--- NOTE | 2020-09-13 02:05 | NUR ---
The patient is resting on his bed but is awake.
--- NOTE | 2020-09-13 04:08 | NUR ---
The patient appears to be sleeping
[2020-09-13 06:53] VITALS: BP 97/51
--- NOTE | 2020-09-13 07:30 | NUR ---
FAXED LABS WITH UTOX TO [facility] PER REQUEST
--- NOTE | 2020-09-13 07:55 | NUR ---
PT RESTING ON RIGHT SIDE RR EQUAL AND UNLABORED
--- NOTE | 2020-09-13 08:42 | NUR ---
[facility] WILL BE HERE BETWEEN [phone] FOR TRANSPORT TO [facility]
--- NOTE | 2020-09-13 08:51 | NUR ---
PT ATE BREAKFAST. UP TO BR STEADY GAIT
== END 2020-09-13 09:33 ==
LOC: ER 04:05
DX: F29 Unspecified psychosis not due to a substance or known physiological condition (principal); Z20.822 Contact with and (suspected) exposure to COVID-19; J45.909 Unspecified asthma, uncomplicated; F15.90 Other stimulant use, unspecified, uncomplicated; F19.90 Other psychoactive substance use, unspecified, uncomplicated; Z72.89 Other problems related to lifestyle; Z59.0 Homelessness; Z88.1 Allergy status to other antibiotic agents; Z88.8 Allergy status to other drugs, medicaments and biological substances; Z91.030 Bee allergy status
CPT/HCPCS: 36415; 80053; 80305; 80320; 81003; 84443; 85025; 87635; 99285; C9803